=== PATIENT | male | born 1935 | race Caucasian/White ===

== ENCOUNTER → 2017-06-16 | Outpatient (CLI) | payer OTHER | LOC: CIMAGING 10:16 | PROVIDERS: ATTEND Internal Medicine | DX: I71.4 Abdominal aortic aneurysm, without rupture (principal) ==

== ENCOUNTER 2017-11-13 07:44 | Inpatient (IN) | payer OTHER ==
--- NOTE | 2017-11-13 07:55 | CPEKG ---
Heart Rate: 61 RR Interval: 984 P-R Interval: 208 QRSD Interval: 92 QT Interval: 412 QTC Interval: 415 P [place]: 49 QRS [place]: -19 T Wave [place]: 15 EKG Severity - OTHERWISE NORMAL ECG - EKG Impression: SINUS RHYTHM EKG Impression: BORDERLINE LEFT AXIS DEVIATION Electronically Signed By: Bethany Slater 13-Nov-2017 14:53:07
--- NOTE | 2017-11-13 08:22 | EDPHY ---
H & P Time Seen by Provider: 11/13/17 08:18 HPI/ROS: CHIEF COMPLAINT: Chest pain HISTORY OF PRESENT ILLNESS: The patient is an 82-year-old male who presents to the emergency department with substernal chest pain starting this morning at approximately 6:00 a.m.. The patient awoke from sleep because of the pain. He describes it as sharp. It radiates to his right shoulder as well as his back. He denies any shortness of breath. No nausea, vomiting or diaphoresis. No leg pain or swelling. No recent travel. Patient took a Pepcid at 6:30 a.m. but his pain persisted. Patient states that his pain lasted for approximately 30 min. No recent cough or illness. REVIEW OF SYSTEMS: My complete review of systems is negative except as mentioned in the HPI. Past Medical/Surgical History: Includes spinal stenosis. The patient denies cardiac disease. He is unclear as to why follows up with a rn hyperbaric. Past surgical history: Includes back surgery, hernia repair, cholecystectomy, finger amputation Social history: The patient does not smoke. Smoking Status: Former smoker Physical Exam: Vitals noted GENERAL: Well-appearing, in no acute distress, alert. HEENT: Eyes normal to inspection, normal pharynx, no signs of dehydration. NECK: [No thyromegaly, no lymphadenopathy, supple. RESPIRATORY: Clear to auscultation bilaterally, no rales, rhonchi or wheezing. CVS: Regular rate and rhythm, no rubs, murmurs, or gallops. ABDOMEN: Soft, nontender, nondistended, no organomegaly. BACK: Normal to inspection, no CVA tenderness. SKIN: Normal color, no rash, warm, dry. No pallor. EXTREMITIES: No pedal edema, no calf tenderness, no Homans sign or cords, no joint swelling. NEURO/PSYCH: Alert and oriented x3, normal mood and affect, normal motor sensory exam. No obvious cranial nerve deficit. Constitutional: Initial Vital Signs Temperature (C) 36.6 C 11/13/17 07:46 Heart Rate 60 11/13/17 07:46 Respiratory Rate 16 11/13/17 07:46 Blood Pressure 146/93 H 11/13/17 07:46 O2 Sat (%) 88 L 11/13/17 07:46 O2 Delivery Mode Nasal Cannula O2 (L/minute) 2 Allergies/Adverse Reactions: No Known Allergies Allergy (Verified 11/13/17 07:57) Home Medications: Medication Instructions Recorded Acetaminophen/Codeine 300/30Mg 08/20/16 [Tylenol #3 (*)] Famotidine [Pepcid 20 MG (*)] 08/20/16 Ondansetron Odt [Zofran Odt 4 mg 08/20/16 (*)] Simethicone [GAS-X] 08/20/16 morphINE SR [Ms Contin/Oramorph 15 08/20/16 mg (*)] Medical Decision Making - Diagnostics EKG Interpretation: EKG shows normal sinus rhythm, normal rate, normal axis, normal intervals. There are no ST or T-wave abnormalities. EKG is normal as interpreted by me. Imaging Results: Imaging Impressions Chest X-Ray 11/13/17 08:18 Impression: Possible left lower lobe infiltrate. Consider chest CT for correlation. If there is concern for pulmonary embolism, then CTA would be helpful to exclude embolus and pneumonia. Chest/Thorax CTA 11/13/17 08:54 Impression:1. Left lower lobe pneumonia with progressive atelectasis/scar. Follow-up is recommended to ensure that the focal consolidation resolves, and does not represent an underlying mass. 2. Progressive triple-vessel coronary artery disease and interval development of mild four-chamber cardiomegaly. 3. No pulmonary embolic disease. Results called and discussed with Dr. Slater at 9:54 AM. General information for patients regarding this examination can be found at [email or web address]. If you have questions or comments about this report, please contact me at (hospital) or [phone] (cell). ED Course/Re-evaluation: In the emergency department I discussed possible etiologies with the patient. Answered all his questions. IV was placed. Laboratory studies, chest x-ray and EKG were obtained. Patient taken aspirin prior to arrival. I reviewed the patient's laboratory studies. The patient's CBC was unremarkable. Chemistry was normal. LFTs and lipase normal. The patient had elevated D-dimer 1.02. I am awaiting troponin and chest x-ray. Troponin neg. 854: I reviewed the chest x-ray: Dr. Wilson felt there may be an early left lower lobe infiltrate. He he recommended CT imaging to further evaluate. Based on the CT reports and the elevated D-dimer CT angiogram was ordered. I discussed this with the patient and answered all his questions. He consented. CT angiogram: Please refer the dictated report. The patient has a left lower lobe infiltrate. The patient also has scarring the left lower lobe. This will need follow-up. Patient was noted also to have coronary artery disease by Dr. Wilson. No dissection or aneurysm. No pulmonary embolus. I discussed these findings with the patient. I answered all her questions. Blood cultures and Levaquin 750 mg IV were ordered. Patient hospitalist service. Patient will be admitted for further treatment of his pneumonia and rule out of his chest pain. I discussed plan for admission with the patient and his . I answered all their questions. He was given warnings. EMTALA was completed. Differential Diagnosis: My differential includes but is not limited to ACS, acute MA, pericarditis, myocarditis, dissection, aneurysm, pulmonary embolus, GERD, hiatal hernia, pancreatitis - Data Points Laboratory Results: Laboratory Results 11/13/17 08:06 11/13/17 08:06 11/13/17 11/13/17 11/13/17 08:06 08:06 08:06 WBC 4.35 10^3/uL 10^3/uL (3.80-9.50) RBC 5.19 10^6/uL 10^6/uL (4.40-6.38) Hgb 14.2 g/dL g/dL (13.7-17.5) Hct 42.9 % % (40.0-51.0) MCV 82.7 fL fL (81.5-99.8) MCH 27.4 pg L pg (27.9-34.1) MCHC 33.1 g/dL g/dL (32.4-36.7) RDW 13.0 % % (11.5-15.2) Plt Count 104 10^3/uL L 10^3/uL (150-400) MPV 8.6 fL L fL (8.7-11.7) Neut % (Auto) 52.3 % % (39.3-74.2) Lymph % (Auto) 37.5 % % (15.0-45.0) Shannon % (Auto) 6.9 % % (4.5-13.0) Eos % (Auto) 2.3 % % (0.6-7.6) Baso % (Auto) 0.5 % % (0.3-1.7) Nucleat RBC Rel Count 0.0 % % (0.0-0.2) Absolute Neuts (auto) 2.28 10^3/uL 10^3/uL (1.70-6.50) Absolute Lymphs (auto) 1.63 10^3/uL 10^3/uL (1.00-3.00) Absolute Monos (auto) 0.30 10^3/uL 10^3/uL (0.30-0.80) Absolute Eos (auto) 0.10 10^3/uL 10^3/uL (0.03-0.40) Absolute Basos (auto) 0.02 10^3/uL 10^3/uL (0.02-0.10) Absolute Nucleated RBC 0.00 10^3/uL 10^3/uL (0-0.01) Immature Gran % 0.5 % % (0.0-1.1) Immature Gran # 0.02 10^3/uL 10^3/uL (0.00-0.10) D-Dimer 1.02 ug/mLFEU H ug/mLFEU (0.00-0.50) Sodium 137 mEq/L mEq/L (134-144) Potassium 4.4 mEq/L mEq/L (3.5-5.2) Chloride 99 mEq/L mEq/L (97-110) Carbon Dioxide 28 mEq/l mEq/l (22-31) Anion Gap 10 mEq/L mEq/L (8-16) BUN 17 mg/dL mg/dL (7-23) Creatinine 1.0 mg/dL mg/dL (0.7-1.3) Estimated GFR > 60 Glucose 90 mg/dL mg/dL (70-100) Calcium 8.8 mg/dL mg/dL (8.5-10.4) Total Bilirubin 0.7 mg/dL mg/dL (0.1-1.4) Conjugated Bilirubin 0.2 mg/dL mg/dL (0.0-0.5) Unconjugated Bilirubin 0.5 mg/dL mg/dL (0.0-1.1) AST 21 IU/L IU/L (17-59) ALT 27 IU/L IU/L (21-72) Alkaline Phosphatase 74 IU/L IU/L (38-126) Troponin I < 0.012 ng/mL ng/mL (0.000-0.034) Total Protein 5.8 g/dL L g/dL (6.3-8.2) Albumin 3.2 g/dL L g/dL (3.5-5.0) Lipase 103 IU/L IU/L (23-300) Departure - Departure Disposition: Home, Routine, Self-Care Clinical Impression: Chest pain Qualifiers: Chest pain type: other chest pain Qualified Code(s): R07.89 - Other chest pain ; R07.8 - Other chest pain Pneumonia Qualifiers: Pneumonia type: due to unspecified organism Laterality: left Lung location: lower lobe of lung Qualified Code(s): J18.1 - Lobar pneumonia, unspecified organism Condition: Good Referrals: Nae Salgado MD [Primary Care Provider] - As per Instructions
[2017-11-13 08:26] LABS: % IMMATURE GRANULYOCYTES 0.5 % (0.0-1.1); ABSOLUTE IMMATURE GRANULOCYTES 0.02 10^3/uL (0.00-0.10); ADD DIFF? NO; ADD MORPH? NO; ADD SCAN? NO; ATYPICAL LYMPHOCYTE FLAG 10 (0-99); FRAGMENT RBC FLAG 0 (0-99); HEMATOCRIT 42.9 % (40.0-51.0); HEMOGLOBIN 14.2 g/dL (13.7-17.5); LEFT SHIFT FLG 0 (0-99); LIPEMIA HEMOLYSIS FLAG 80 (0-99); MEAN CELL HEMOGLOBIN 27.4 pg (27.9-34.1); MEAN CELL HEMOGLOBIN CONCENTR. 33.1 g/dL (32.4-36.7); MEAN CELL VOLUME 82.7 fL (81.5-99.8); MEAN PLATELET VOLUME 8.6 fL (8.7-11.7); PLATELET CLUMPS FLAG 0 (0-99); PLATELET COUNT 104 10^3/uL (150-400); RED BLOOD CELL COUNT 5.19 10^6/uL (4.40-6.38)
[2017-11-13 08:38] LABS: ALANINE AMINOTRANSFERASE 27 IU/L (21-72); ALBUMIN 3.2 g/dL (3.5-5.0); ALKALINE PHOSPHATASE 74 IU/L (38-126); ANION GAP 10 mEq/L (8-16); ASPARTATE AMINOTRANSFERASE 21 IU/L (17-59); BILIRUBIN,TOTAL 0.7 mg/dL (0.1-1.4); BILIRUBIN-CONJUGATED 0.2 mg/dL (0.0-0.5); BILIRUBIN-UNCONJUGATED 0.5 mg/dL (0.0-1.1); CALCIUM 8.8 mg/dL (8.5-10.4); CARBON DIOXIDE 28 mEq/l (22-31); CHLORIDE 99 mEq/L (97-110); GLOMERULAR FILTRATION RATE > 60; GLUCOSE 90 mg/dL (70-100); POTASSIUM 4.4 mEq/L (3.5-5.2); SODIUM 137 mEq/L (134-144); TOTAL PROTEIN 5.8 g/dL (6.3-8.2)
[2017-11-13 08:48] LABS: TROPONIN I < 0.012 ng/mL (0.000-0.034)
[2017-11-13] MEDS ORDERED: IOPAMIDOL (ISOVUE 370) 100 ML BTL IV ONE (09:06)
[2017-11-13] MEDS ORDERED: ONDANSETRON DISINTEGRATING 4 MG TAB PO PRN (12:44)
[2017-11-13] MEDS ORDERED: ONDANSETRON 4 MG/2 ML VIAL IVP PRN (12:44)
[2017-11-13] MEDS ORDERED: ACETAMINOPHEN 325 MG TAB PO PRN (12:44)
--- NOTE | 2017-11-13 13:15 | PDGENHP ---
History and Physical - Chief Complaint chest pain - History of Present Illness 82 yo male with h/o chronic pain from cervical stenosis and CAD awoke this morning with focal sharp chest pain. No associated SOB, nausea or diaphoresis. It radiated to his back and right shoulder. It dissipated within 30 minutes. He notes h/o cervical stenosis which can also cause right shoulder pain. He denies cough or fever. No SOB. He does note some congestion. He has been in his usual state of health until this event this morning. He had an angiogram in 07/2016 which showed non-obstructive CAD, but he is not aware of CAD. He takes a daily ASA when he remembers. He uses home oxygen for headaches. Imaging in the ED was suggestive of pneumonia and he is admitted for further management. History Information - Allergies/Home Medication List Allergies/Adverse Reactions: No Known Allergies Allergy (Verified 11/13/17 07:57) Home Medications: Acetaminophen/Codeine 300/30Mg [Tylenol #3 (*)] 2 tab PO BID@,08/20/16 [ Last Taken 11/13/17 06:00] Famotidine [Pepcid 20 MG (*)] 20 mg PO DAILY PRN 08/20/16 [Last Taken 11/13/17] Ondansetron Odt [Zofran Odt 4 mg (*)] 4 mg PO Q4 PRN 08/20/16 [Last Taken ] Simethicone [GAS-X] 80 mg PO TID@,,08/20/16 [Last Taken 11/13/17] morphINE SR [Ms Contin/Oramorph 15 mg (*)] 15 mg PO TID@,,08/20/16 [Last Taken 11/13/17 11:00] Aspirin EC [Aspirin EC 81 mg (*)] 81 mg PO DAILY 11/13/17 [Last Taken 11/13/17] Herbals/Supplements -Info Only 1 ea PO DAILY 11/13/17 [Last Taken Unknown] I have personally reviewed and updated: family history, medical history, social history, surgical history - Past Medical History Additional medical history: cervical stenosis. chronic opioid dependence. AAA , 3.9 cm on u/s in 05/2017. B/L iliac artery aneurysm. Dysthymia. GERD. chronic headaches - on home oxygen - Surgical History Additional surgical history: Lumbar fusion for stenosis. Hernia repair. Cholecystectomy. Tonsillectomy - Family History Additional family history: mom of lung cancer in her 80's - Social History Smoking Status: Former smoker Alcohol Use: None Drug Use: None Additional social history: , lives independently Review of Systems Review of Systems: ROS: 10pt was reviewed & negative except for what was stated in HPI & below Physical Exam Physical Exam: Temp Pulse Resp BP Pulse Ox 36.5 C 67 14 151/89 H 98 11/13/17 12:40 11/13/17 12:40 11/13/17 12:40 11/13/17 12:40 11/13/17 12:40 O2 (L/minute) 2 Constitutional: no apparent distress Eyes: PERRL Ears, Nose, Mouth, Throat: moist mucous membranes Cardiovascular: regular rate and rhythym Respiratory: no respiratory distress, clear to auscultation Gastrointestinal: normoactive bowel sounds, soft, non-tender abdomen Skin: warm Musculoskeletal: full muscle strength Neurologic: AAOx3 Psychiatric: interacting appropriately, poor memory Lab Data & Imaging Review 11/13/17 08:06 11/13/17 08:06 WBC 4.35 10^3/uL (3.80-9.50) 11/13/17 08:06 RBC 5.19 10^6/uL (4.40-6.38) 11/13/17 08:06 Hgb 14.2 g/dL (13.7-17.5) 11/13/17 08:06 Hct 42.9 % (40.0-51.0) 11/13/17 08:06 MCV 82.7 fL (81.5-99.8) 11/13/17 08:06 MCH 27.4 pg (27.9-34.1) L 11/13/17 08:06 MCHC 33.1 g/dL (32.4-36.7) 11/13/17 08:06 RDW 13.0 % (11.5-15.2) 11/13/17 08:06 Plt Count 104 10^3/uL (150-400) L 11/13/17 08:06 MPV 8.6 fL (8.7-11.7) L 11/13/17 08:06 Neut % (Auto) 52.3 % (39.3-74.2) 11/13/17 08:06 Lymph % (Auto) 37.5 % (15.0-45.0) 11/13/17 08:06 Orange % (Auto) 6.9 % (4.5-13.0) 11/13/17 08:06 Eos % (Auto) 2.3 % (0.6-7.6) 11/13/17 08:06 Baso % (Auto) 0.5 % (0.3-1.7) 11/13/17 08:06 Nucleat RBC Rel Count 0.0 % (0.0-0.2) 11/13/17 08:06 Absolute Neuts (auto) 2.28 10^3/uL (1.70-6.50) 11/13/17 08:06 Absolute Lymphs (auto) 1.63 10^3/uL (1.00-3.00) 11/13/17 08:06 Absolute Monos (auto) 0.30 10^3/uL (0.30-0.80) 11/13/17 08:06 Absolute Eos (auto) 0.10 10^3/uL (0.03-0.40) 11/13/17 08:06 Absolute Basos (auto) 0.02 10^3/uL (0.02-0.10) 11/13/17 08:06 Absolute Nucleated RBC 0.00 10^3/uL (0-0.01) 11/13/17 08:06 Immature Gran % 0.5 % (0.0-1.1) 11/13/17 08:06 Immature Gran # 0.02 10^3/uL (0.00-0.10) 11/13/17 08:06 D-Dimer 1.02 ug/mLFEU (0.00-0.50) H 11/13/17 08:06 Sodium 137 mEq/L (134-144) 11/13/17 08:06 Potassium 4.4 mEq/L (3.5-5.2) 11/13/17 08:06 Chloride 99 mEq/L (97-110) 11/13/17 08:06 Carbon Dioxide 28 mEq/l (22-31) 11/13/17 08:06 Anion Gap 10 mEq/L (8-16) 11/13/17 08:06 BUN 17 mg/dL (7-23) 11/13/17 08:06 Creatinine 1.0 mg/dL (0.7-1.3) 11/13/17 08:06 Estimated GFR > 60 11/13/17 08:06 Glucose 90 mg/dL (70-100) 11/13/17 08:06 Calcium 8.8 mg/dL (8.5-10.4) 11/13/17 08:06 Total Bilirubin 0.7 mg/dL (0.1-1.4) 11/13/17 08:06 Conjugated Bilirubin 0.2 mg/dL (0.0-0.5) 11/13/17 08:06 Unconjugated Bilirubin 0.5 mg/dL (0.0-1.1) 11/13/17 08:06 AST 21 IU/L (17-59) 11/13/17 08:06 ALT 27 IU/L (21-72) 11/13/17 08:06 Alkaline Phosphatase 74 IU/L (38-126) 11/13/17 08:06 Troponin I < 0.012 ng/mL (0.000-0.034) 11/13/17 08:06 Total Protein 5.8 g/dL (6.3-8.2) L 11/13/17 08:06 Albumin 3.2 g/dL (3.5-5.0) L 11/13/17 08:06 Lipase 103 IU/L (23-300) 11/13/17 08:06 Visualized and Interpreted Chest x-ray results: Yes Chest X-Ray results: infiltrate Visualized and Interpreted EKG results: Yes EKG Interpretation: Positive for: normal sinsus rhythm EKG additional interpertation: mild T wave changes inferior leads Assessment & Plan Assessment: PNA - This is very small on imaging and pt is afebrile with no cough, leukocytosis or e/o sepsis. -check PCT. If low risk, consider d/c atbx -respiratory pathogen panel -cont levaquin for now -send sputum Cx if he develops productive cough Chest pain - This was sharp and fleeting, low suspicion for ACS. Has h/o CAD, non-obstructive dz on angiogram 07/2016. -trend troponin -cont ASA -check lipid status and consider statin given CAD hx -will discuss inpt vs outpt risk stratification with cards if trops neg and no further CP Chronic pain with continuous opioid dependence - cont home morphine / T3 doses Cognitive impairment - will request cog eval by speech Anxiety - cont home meds Full code DVT PPLX - Lovenox Dispo - obs
[2017-11-13] MEDS ORDERED: FAMOTIDINE 20 MG TAB PO PRN (13:53)
[2017-11-13 14:38] LABS: TROPONIN I < 0.012 ng/mL (0.000-0.034)
[2017-11-13 14:50] LABS: PROCALCITONIN 0.03 ng/mL (0.02-0.10)
[2017-11-13] MEDS: ACETAMINOPHEN/CODEINE 300/30MG TAB PO SCH (14:55)
[2017-11-13] MEDS: SIMETHICONE 80 MG TAB CHEW PO SCH ×2 (19:20→19:21)
[2017-11-13] MEDS: morphINE SR 15 MG TAB PO SCH (19:22)
[2017-11-14] MEDS: morphINE SR 15 MG TAB PO SCH ×3 (03:32→18:52)
[2017-11-14] MEDS: SIMETHICONE 80 MG TAB CHEW PO SCH ×6 (03:34→18:52)
[2017-11-14 05:00] LABS: CHOLESTEROL 148 mg/dL (140-220); CHOLESTEROL/HDL RATIO 3.29 RATIO (1.00-4.97); HIGH DENSITY LIPOPROTEIN 45 mg/dL (40-65); LDL/HDL RATIO 1.87 RATIO (1.00-3.64); LOW DENSITY LIPOPROTEIN 84 mg/dL (80-100); NON-HIGH DENSITY LIPOPROTEIN 103 mg/dL (90-129); TRIGLYCERIDE 97 mg/dL (40-150); VERY LOW DENSITY LIPOPROTEINS 19 mg/dL (8-25)
[2017-11-14] MEDS: ACETAMINOPHEN/CODEINE 300/30MG TAB PO SCH ×2 (07:05→13:18)
[2017-11-14] MEDS ORDERED: ENOXAPARIN 40 MG/0.4 ML SYR SC SCH (09:00)
[2017-11-14] MEDS ORDERED: ASPIRIN 81 MG CHEWABLE TAB PO SCH (09:00)
[2017-11-14] MEDS: ASPIRIN EC 81 MG TAB PO SCH (09:38)
--- NOTE | 2017-11-14 10:05 | HOSPPROG ---
Hospitalist Progress Note Assessment/Plan: Acute / chronic hypoxemic respiratory failure - pt uses 2 LPM O2 at home for headaches. He was admitted for PNA and is receiving Levaquin. However, I doubt PNA with no fevers, no cough, normal wbc's, and negative PCT. His CT findings may be compressive atelectasis or dependent edema. EF was 60% on angiogram in 07/2016. -D/C atbx, clinical picture not c/w PNA -check echo and bnp - echo shows nl EF, +diastolic dysfunction. BNP slightly elevated -will give IV Lasix today -wean O2 as able -add IS Chest pain with h/o CAD - CP was sharp and fleeting, now resolved. Low suspicion for ACS. +H/O CAD, non-obstructive dz on angiogram 07/2016. Trops neg. -cont ASA -LDL 84, goal <70 with CAD, start statin -stress test in am prior to dc. cardiology consult if this is abnormal Chronic pain with continuous opioid dependence - cont home morphine / T3 doses Cognitive impairment - will request cog eval by speech Anxiety - cont home meds Full code DVT PPLX - Lovenox Dispo - obs Subjective: Pt feels ok. Denies CP, SOB or cough. No fevers. Continues on baseline O2. Objective: Vital Signs Temp Pulse Resp BP Pulse Ox 36.9 C 66 16 132/81 H 94 11/14/17 08:17 11/14/17 08:17 11/14/17 08:17 11/14/17 08:17 11/14/17 08:17 Microbiology 11/13/17 10:51 Respiratory Panel (PCR) - Final Nasal, Sinus - Swab No Organism Detected 11/13/17 11/14/17 11/15/17 05:59 05:59 05:59 Intake Total 150 Balance 150 - Physical Exam Constitutional: no apparent distress Eyes: PERRL Ears, Nose, Mouth, Throat: moist mucous membranes Cardiovascular: regular rate and rhythym Respiratory: no respiratory distress, reduced air movement Gastrointestinal: normoactive bowel sounds, soft, non-tender abdomen Skin: warm Musculoskeletal: full muscle strength Neurologic: AAOx3 Psychiatric: interacting appropriately ICD10 Worksheet Patient Problems: Problems Problem Status Onset Chest pain Acute Pneumonia Acute Coronary artery disease Acute Weakness Acute
--- NOTE | 2017-11-14 11:55 | ECHO ---
[email or web address] [address] [address] Main: [phone] Fax: Transthoracic Echocardiogram Name: NANCY MONTES MR#: [id number] Study Date: 11/14/2017 Study Time: 10:20 AM Date of : 1935 Age: 82 year(s) Height: 185.4 cm (73 in.) Weight: 101.61 kg (224 lb.) BSA: 2.26 m2 Gender: Male Examination: Echo Indication: Shortness of breath, hypoxemia Image Quality: Adequate Contrast: Requested by: Ariana Gaines BP: / Heart Rate: Rhythm: Indication: Shortness of breath, hypoxemia Procedure Staff Chrome Polisher: Yolanda Parra Reading Physician: Gino Hill Requesting Provider: Conclusions: No pericardial effusion. Concentric left ventricular hypertrophy. Ejection fraction 76%. Mild mitral regurgitation. Mild tricuspid regurgitation with a right ventricular systolic pressure of 41 mm of mercury. Measurements: Chambers Valvular Assessment AV/MV Valvular Assessment TV/PV Normal Normal Normal Name Value Range Name Value Range Name Value Range Ao Yuliet (MM): 3.6 cm (2.2 cm-3.7 AV Vmax: 1.33 m/s (1 m/s-1.7 TR Vmax: 2.80 mm/s ( - ) cm) m/s) TR PGmax: 31 mmHg ( - ) IVSd (2D): 1.1 cm (0.6 cm-1.1 AV maxP mmHg ( - ) syst. PAP: 41 mmHg ( - ) cm) LVOT Vmax: 0.87 m/s (0.7 m/s-1.1 PV Vmax: 1.05 m/s (0.6 m/s-0.9 LVDd (2D): 5.2 cm (4.2 cm-5.9 m/s) m/s) cm) PV PGmax: 4 mmHg ( - ) LVDs (2D): 3.2 cm (2.1 cm-4 cm) LVPWd (2D): 1.1 cm (0.6 cm-1 cm) LVEF (BP): 76 % (>=55 %) RVDd(2D): 3.6 cm (1.9 cm-3.8 cmmm) Continued Measurements: Chambers Valvular Assessment TV/PV Name Value Name Value LADs Lon.4 cm CVP (est.): 10 mmHg LA Area: 22.8 cm2 LA Volume: 73 ml LA Volume Index: 32.3 ml/m2 Patient: NANCY MONTES Study Date: 11/14/2017 Page 1 of 2 10:20 AM Additional Vessels Name Value Ao Ascendin.8 cm Findings: Left Ventricle: Normal size left ventricle. Mild concentric LV hypertrophy. Normal global systolic LV function. EF is 76 %. No regional wall motion abnormality. Grade 1 diastolic dysfunction (abnormal relaxation). Right Ventricle: Normal size right ventricle. Normal RV function. Left Atrium: The left atrium is normal in size. Right Atrium: The right atrium is normal in size. Mitral Valve: There is mild thickening of the mitral valve leaflets. Mild mitral valve regurgitation is present. No mitral stenosis is present. Aortic Valve: The aortic valve is normal in appearance and function. The aortic valve is tri-leaflet. Mild aortic cusp calcification is noted. There is no aortic valve regurgitation. No aortic valve stenosis is present. Tricuspid Valve: The tricuspid valve is normal in appearance and function. Mild tricuspid regurgitation is present. Right ventricular systolic pressure measures 41mmHg. The pulmonary artery pressure is mildly increased. Pulmonic Valve: The pulmonic valve is normal in appearance and function. Trivial to mild pulmonic valve regurgitation. Aorta: The aorta is normal. Normal size aortic root measuring 3.6 cm. Mildly dilated ascending aorta measuring 3.8 cm. IVC: The IVC is mildly dilated. There is greater shyanne 50% respiratory excursion. Pericardium: No pericardial effusion. (No Signature Object) Patient: NANCY MONTES Study Date: 11/14/2017 Page 2 of 2 10:20 AM [id number]
[2017-11-14] MEDS: ATORVASTATIN CALCIUM 20 MG TAB PO SCH (13:18)
[2017-11-14] MEDS ORDERED: FUROSEMIDE 20 MG/2 ML VIAL IVP ONE (14:56)
--- NOTE | 2017-11-14 16:07 | PDMN ---
Medical Necessity Medical necessity: change to IP; los>2mn for ongoing eval of acute/chronic hypoxemic resp failure, chest pain w/ hx CAD, and cognitive impairment ; requires IV Lasix, weaning of O2 and stress test 11/15/17; comorbid chronic pain , and opioid dependence; per order and progress note 11/14/17
--- NOTE | 2017-11-14 17:12 | ASMTCMCOM ---
CM Note CM Note Notes: 11/14/2017 Case Management Note Met w/pt and Marilyn [phone]. Pt is a retired charter pilot. He has 3 daughters, Mildred lives in [place] and is coming to visit on Tuesday, Mildred has 1 son. Jannette and Zina are local daughters. Zina has 2 boys. Pt is independent in ADL's. Pt has Home O2 from [facility]. Pt has numerous questions re: insurance coverage. Referred to Financial Counseling. Case Management d/c poc: Home independent when medically stable with follow up as directed. Case management available if needs change. Date Signed: 11/14/2017 05:12 PM Electronically Signed By:Mireya Woods RN
[2017-11-15] MEDS: morphINE SR 15 MG TAB PO SCH ×2 (03:28→10:57)
[2017-11-15] MEDS: SIMETHICONE 80 MG TAB CHEW PO SCH ×2 (03:29→10:57)
[2017-11-15 04:39] LABS: ANION GAP 9 mEq/L (8-16); CALCIUM 8.8 mg/dL (8.5-10.4); CARBON DIOXIDE 26 mEq/l (22-31); CHLORIDE 100 mEq/L (97-110); CREATININE 0.9 mg/dL (0.7-1.3); GLOMERULAR FILTRATION RATE > 60; GLUCOSE 98 mg/dL (70-100); POTASSIUM 3.8 mEq/L (3.5-5.2); SODIUM 135 mEq/L (134-144)
[2017-11-15 04:59] VITALS: RESP 18
[2017-11-15] MEDS: ACETAMINOPHEN/CODEINE 300/30MG TAB PO SCH (07:23)
[2017-11-15] MEDS: ASPIRIN EC 81 MG TAB PO SCH (08:46)
[2017-11-15] MEDS: ATORVASTATIN CALCIUM 20 MG TAB PO SCH (08:46)
[2017-11-15] MEDS ORDERED: REGADENOSON 0.4 MG/5 ML SYR IVP ONE (09:36)
[2017-11-15 12:45] VITALS: BP 148/97; PULSE 68; TEMP 98; O2SAT 97
--- NOTE | 2017-11-15 17:52 | CPR ---
[f rep st] NONINVASIVE CARDIAC PROCEDURE REPORT DATE OF PROCEDURE: 11/15/2017 PROCEDURE: Lexiscan nuclear stress test. INDICATION: The patient is an 82-year-old male who presented to the hospital complaining of 30 minut es of sharp localized chest discomfort. He denies any history of hypertension, hyperlipidemia, diabe vasiliy, ongoing tobacco use or family history of coronary artery disease. DESCRIPTION OF PROCEDURE: Consent was obtained, and the patient was placed on continuous telemetry. His resting EKG reveals normal sinus rhythm with a heart rate of 69, OK interval of 216, indicating a first degree AV block. A QT of 388 and a QTc of 416. He has a left anterior fascicular block. Th e patient was infused with Lexiscan and complained of exacerbated nausea. He was given caffeine in t he recovery phase, with minimal improvement in his nausea. Aminophylline was offered, but which the patient refused. He remained in normal sinus rhythm throughout the study. There were no significant ST-T wave changes. His blood pressure at rest was 128/62 and remained stable throughout the study. PLAN: Await nuclear images. /[id number]/[id number]
--- NOTE | 2017-11-16 14:06 | GDS ---
[f rep st] DISCHARGE SUMMARY DISCHARGE DIAGNOSES: 1. Chronic hypoxemic respiratory failure on baseline oxygen of 2 L/minute. 2. Acute on chronic diastolic heart failure. 3. Coronary artery disease. 4. Chronic pain. 5. Chronic continuous opioid dependence. 6. Cognitive impairment. CONSULTANTS: None. IMAGING STUDIES/PROCEDURES: 1. Computerized tomography pulmonary angiogram November 13, 2017, was negative for pulmonary embolis m. There was a possible left lower lobe pneumonia versus atelectasis, scarring, or possibly dependen t edema. Progressive triple-vessel coronary disease was also noted, as well as cardiomegaly, but no pulmonary embolic disease. 2. Echocardiogram November 14, 2017, showed an ejection fraction of 76% with grade 1 diastolic dysfu nction, no significant valve abnormalities. 3. Nuclear medicine myocardial perfusion scan was negative for myocardial ischemia. HISTORY: For details please see dictated history and physical dated November 13, 2017. In brief, th e patient is an 82-year-old male with a history of chronic pain from cervical stenosis, chronic pain, chronic opioid dependence, and coronary artery disease on home oxygen, who presented to the emergenc y department with chest discomfort. He was admitted to the hospital for further management. HOSPITAL COURSE: The patient was admitted to the cardiac telemetry unit, and his initial imaging was concerning for a possible pneumonia. However, he had no cough. No leukocytosis. No evidence of se psis, and he remained afebrile. His clinical picture was not consistent with pneumonia. In addition , he had a negative procalcitonin. I reviewed his CT scan with the radiologist, and the findings cou ld be consistent with compressive atelectasis or possibly dependent edema. His echocardiogram did sh ow some diastolic dysfunction, and he had an NT-proBNP of 686. He is on his baseline oxygen requirem ent of 2 L/minute throughout the hospitalization. He was started on low-dose Lasix therapy along wit h low-dose potassium. His antibiotics were discontinued for the reasons described above. In [facility] n, his LDL was 84 in the setting of coronary disease. His goal LDL was less than 70. Therefore, he was started on atorvastatin 20 mg daily. In addition, I took note of his chronic opioid use, and it seems he has some mild cognitive impairment. I do have some concern that his morphine may be contrib uting to cognitive difficulties, and I would advocate for weaning his morphine in favor of nonopioid therapies, if possible, especially given his age and risk factors. DISPOSITION: The patient is discharged home in stable condition. FOLLOWUP: 1. Dr. Harjeet Soares, Cardiology, in 1 week at which time he will need a basic metabolic panel to rech vishnu his electrolytes and kidney function after initiation of low-dose Lasix therapy. 2. Dr. Nae Salgado, primary care physician. /[id number]/MODL
== END 2017-11-15 14:04 | disposition home or self-care (01) | DRG 292 ==
LOC: CED 07:44 → CEDHOLD 10:37 → F2W 12:35 → OBSVTOIN 11-14 13:33
PROVIDERS: ADMIT Hospitalist; ATTEND Hospitalist
DX: I50.33 Acute on chronic diastolic (congestive) heart failure (principal); J96.11 Chronic respiratory failure with hypoxia; F11.20 Opioid dependence, uncomplicated; I25.10 Atherosclerotic heart disease of native coronary artery without angina pectoris; G89.29 Other chronic pain; G31.84 Mild cognitive impairment of uncertain or unknown etiology; Z87.891 Personal history of nicotine dependence
CPT/HCPCS: 71020-PO; 71275-PO; 80048-PO; 80076-PO; 83690-PO; 84484-PO; 85025-PO; 85378-PO; 96365; 97161-GP; 97165-GO; A9500; G0378; G8978-GP-CI; G8979-GP-CI; G8987-GO-CI; G8988-GO-CI; G8989-GO-CI; J1650; J1940; J1956; J2405; J2785; Q9967